=== PATIENT | female | born 1945 | race Caucasian/White ===

== ENCOUNTER 2017-06-29 14:55 | Emergency (ER) | payer MEDICAID ==
[~2017-06-29] VITALS: Ht 147.3 cm; Wt 42.8 kg
[2017-06-29 15:02] VITALS: BP 193/94; Ht 147.3 cm; Wt 42.8 kg
== END 2017-06-29 15:30 | disposition home or self-care (01) ==
LOC: ED 14:55
DX: S00.412A Abrasion of left ear, initial encounter (principal); I10 Essential (primary) hypertension; F17.210 Nicotine dependence, cigarettes, uncomplicated; Z71.6 Tobacco abuse counseling; X58.XXXA Exposure to other specified factors, initial encounter; Y93.89 Activity, other specified; Y92.89 Other specified places as the place of occurrence of the external cause; Y99.8 Other external cause status
CPT/HCPCS: 99406